=== PATIENT | female | born 1965 | race Caucasian/White ===

== ENCOUNTER 2024-06-07 18:35 | Emergency (ER) | payer OTHER, SELFPAY ==
[2024-06-07 18:37] VITALS: BP 156/90
[2024-06-07 19:25] VITALS: BMI 25.0
[2024-06-07] MEDS: ADACEL 0.5 ML IM (20:11)
--- NOTE | 2024-06-07 20:27 | ED.SKININJ ---
HPI-Injury
General
Chief Complaint: Head Injury
Source: patient
Exam Limitations: none
Time Seen by Provider: 06/07/24 19:13
Nursing documentation reviewed up to this point in time: agreed with
History of Present Illness-Injury
Is this injury a work related problem?: No
Is pt an associate of [facility]/[place]?: No
Initial Injury comments:
Patient states a board fell and hit her on the head. No LOC. Sustained a lac to top of head. Injury occurred at home just [employer]
Past History
Past History
ED Past Medical History: None
Review of Systems
Review of Systems
Allergies reviewed?: Yes
All Other Systems: ROS reviewed and negative except as documented in HPI and ROS
Constitutional: Reports no symptoms
EENT: Reports no symptoms
Musculoskeletal: Reports no symptoms
Skin: Reports other (laceration to parietal scalp)
Neurological: Reports no symptoms
Psychiatric: Reports no symptoms
Skin Exam
Laceration
Left Parietal:
Length in cm: 2
Orientation: vertical
Type of Laceration: simple
Any active bleeding?: low grade venous oozing
Distal skin color and temperature: normal-warm & good color
Normal distal neurovascular exam: Yes
Range of motion: full
Phy Exam
General Physical Exam
General Presentation: well appearing and no apparent distress
General age: appears stated age
General Skin: warm and dry
General Habitus: normal
Neurological Exam
Neurological Exam: alert, oriented x3, CN II-XII intact, no motor deficits, no sensory deficits, speech normal and normal gait
Musculoskeletal Exam
Musculoskeletal Exam: full ROM and neuro vasc intact
Skin Exam
Skin Exam: normal color, warm/dry and no rash
Psychiatric Exam
Psychiatric Exam: normal mood/affect
Course
Orders/Labs/Results
Orders:
Orders
06/07/24 19:41
CT Head W/o Iv Contrast Urgent
Comment:
Reason For Exam: trauma
Tetanus/Diphth/Acelpertussis [Adacel] 0.5 ml IM .ONCE ONE
06/07/24 21:02
Acetaminophen [Tylenol] 1,000 mg PO NOW STA
Vital Signs
Initial and Last Documented VS:
Initial Vital Signs
Temp Pulse Resp BP Pulse Ox
98.9 F 79 16 156/90 100
06/07/24 18:37 06/07/24 18:37 06/07/24 18:37 06/07/24 18:37 06/07/24 18:37
Last Documented Vital Signs
Temp Pulse Resp BP Pulse Ox
98.9 F 79 16 156/90 100
06/07/24 18:37 06/07/24 18:37 06/07/24 18:37 06/07/24 18:37 06/07/24 18:37
Procedures
Laceration Closure
Left Parietal:
Status of Wound: clean
Description of Wound Edges: sharp
Preparation: cleaned with saline
Anesthesia: 1% Lidocaine
Revision/Debridement: routine- no revision
Wound exploration: explored to base- no FB
Type of Closure: single layer closure
Skin Closure Material: skin jessica (4 jessica)
*Radiology
Radiology exam reviewed: radiology read reviewed
*Pulse Oximetry
Patient hypoxic: no
*Critical Care Note
Total Time (30-74mins, 75-104mins- exclusive of procedures): Not Applicable
ED Attending Note
-
Portions of this chart may have been created with voice recognition software.� Occasional wrong word or��sound alike� substitutions may have occurred due to the inherent limitations of voice recognition software.
Discharge Plan
Departure
Patient Disposition: Home (Routine Discharge)
Date of Disposition: 06/07/24
Time of Disposition: 20:59
Patient with high blood pressure during this ER visit?: No
Condition: Good
Covid-19: Not Applicable
Discharge Problem:
Head injury
Instructions: Head Injury in Adults (DC), Laceration Repair With [place] (DC)
Referrals:
Vicky Loyd MD [Family Provider] - ([place] can be removed in 7-10 days)
Stand Alone Forms: Return to Work
Interventions
Interventions:
*Risk Screen - Suicide Last Done: 06/07/24 19:25
*General Assessment Last Done: 06/07/24 19:25
*Neglect/Abuse Screening Last Done: 06/07/24 19:25
*ED- Fall Risk Assessment Last Done: 06/07/24 19:25
*ED COVID-19 Vaccine History Last Done: 06/07/24 19:25
ED- Neurological Assessment Last Done: 06/07/24 19:25
ED-Skin Assessment Last Done: 06/07/24 19:25
Discharge Date and Time
Print Language: [id number]
[2024-06-07] MEDS: TYLENOL 1000 MG PO (21:05)
[2024-06-07 21:07] VITALS: BP 131/83
== END 2024-06-07 21:09 | disposition home or self-care (01) ==
LOC: EMR 18:35
PROVIDERS: EMERGENCY PHYSICIAN Emergency Medicine; FAMILY PHYSICIAN Internal Medicine
DX: S09.90XA Unspecified injury of head, initial encounter (principal); S01.01XA Laceration without foreign body of scalp, initial encounter; W20.8XXA Other cause of strike by thrown, projected or falling object, initial encounter; Y92.009 Unspecified place in unspecified non-institutional (private) residence as the place of occurrence of the external cause
CPT/HCPCS: 99284; 12001; 70450; 90715